=== PATIENT | male | born 1960 | race African-American/Black ===

== ENCOUNTER 2017-11-03 02:54 | Emergency (ER) | payer OTHER ==
[~2017-11-03] VITALS: Ht 177.8 cm; Wt 130.0 kg
[2017-11-03 06:10] LABS: BASOPHILS % 0.7 % (0.0-2.0); EOSINOPHILS % 2.1 % (0.0-5.0); HEMATOCRIT. 38.9 % (42.0-52.0); HEMOGLOBIN. 12.7 g/dL (14.0-18.0); MEAN CORPUSCULAR VOLUME 91.6 fL (80.0-94.0); MEAN PLATELET VOLUME 9.4 fl (7.4-10.4); MONOCYTES % 7.4 % (2.0-8.0); NEUTROPHILS % 59.8 % (40.0-76.0); PLATELET 175 x1000/uL (130-400); RED BLOOD CELL COUNT 4.24 mill/uL (4.7-6.1); RED CELL DISTRIBUTION WIDTH 12.9 % (11.6-14.6)
[2017-11-03 06:15] LABS: PROTHROMBIN TIME 10.6 sec (9.4-11.6)
[2017-11-03 06:23] LABS: CHLORIDE 108 mEq/L (98-107)
[2017-11-03 06:28] LABS: TROPONIN I < 0.02 ng/mL (0.00-0.04)
[2017-11-03] MEDS ORDERED: KETOROLAC 30MG/ML VIAL IM ONE (06:45)
[2017-11-03 07:20] VITALS: BP 126/79
== END 2017-11-03 08:03 | disposition home or self-care (01) ==
LOC: ER 03:20
DX: S10.83XA Contusion of other specified part of neck, initial encounter (principal); S30.0XXA Contusion of lower back and pelvis, initial encounter; D64.9 Anemia, unspecified; E11.9 Type 2 diabetes mellitus without complications; V43.62XA Car passenger injured in collision with other type car in traffic accident, initial encounter; Y93.89 Activity, other specified; Y92.488 Other paved roadways as the place of occurrence of the external cause
CPT/HCPCS: 36415; 71045; 80053; 83880; 84484; 85025; 85610; 93005; 96372; 99285; J1885